=== PATIENT | male | born 1995 | race African-American/Black ===

== ENCOUNTER 2020-01-07 00:24 | Emergency (ER) | payer OTHER ==
[~2020-01-07] VITALS: Ht 170.2 cm; Wt 61.4 kg
[2020-01-07 02:39] VITALS: BP 120/70
== END 2020-01-07 02:42 | disposition home or self-care (01) ==
LOC: M ED 00:24
DX: T33.831A Superficial frostbite of right toe(s), initial encounter (principal); T33.832A Superficial frostbite of left toe(s), initial encounter; T68.XXXA Hypothermia, initial encounter; X31.XXXA Exposure to excessive natural cold, initial encounter; Y92.139 Unspecified place military base as the place of occurrence of the external cause; Y93.89 Activity, other specified; Y99.1 Military activity; F17.200 Nicotine dependence, unspecified, uncomplicated

== ENCOUNTER 2020-03-30 06:30 | Emergency (ER) | payer OTHER ==
[~2020-03-30] VITALS: Ht 170.2 cm; Wt 58.1 kg
[2020-03-30] MEDS ORDERED: ACETAMINOPHEN 325 MG TAB PO ONE (07:00)
--- NOTE | 2020-03-30 07:10 | REP ---
Clinical: Right rib pain. Technique: Frontal view of the chest with four views of the right hemithorax. Findings: Frontal view of the chest demonstrates no acute cardiopulmonary process. Multiple views of the right hemithorax demonstrates no obvious acute displaced rib fracture. Impression: No obvious acute rib fracture identified. Electronically Signed by Aquilino Solis MD 03/30/2020 07:01 A
[2020-03-30 07:50] VITALS: BP 110/68
== END 2020-03-30 07:54 | disposition home or self-care (01) ==
LOC: M ED 06:30
DX: S20.211A Contusion of right front wall of thorax, initial encounter (principal); W18.09XA Striking against other object with subsequent fall, initial encounter; Y92.002 Bathroom of unspecified non-institutional (private) residence as the place of occurrence of the external cause; Y93.E1 Activity, personal bathing and showering; Y99.8 Other external cause status; S09.90XA Unspecified injury of head, initial encounter

== ENCOUNTER 2020-05-24 20:18 | Emergency (ER) | payer OTHER ==
[~2020-05-24] VITALS: Ht 170.2 cm; Wt 61.0 kg
[2020-05-24 22:40] VITALS: BP 124/75
== END 2020-05-24 23:00 | disposition home or self-care (01) ==
LOC: M ED 20:18
DX: F43.0 Acute stress reaction (principal); F17.200 Nicotine dependence, unspecified, uncomplicated